=== PATIENT | female | born 1975 | race Caucasian/White ===

== ENCOUNTER 2017-01-29 00:22 | Emergency (ER) | payer OTHER ==
[~2017-01-29] VITALS: Ht 167.6 cm; Wt 91.9 kg
[~2017-01-29 00:22] MED LIST: HYDRODIURIL,ORE25 MG PO
[2017-01-29] MEDS ORDERED: PEN-VEE K,VEET500 MG PO (03:02)
[2017-01-29] MEDS ORDERED: PERCOCET 5/31 TABLET PO (03:02)
[2017-01-29 03:19] VITALS: BP 176/111
== END 2017-01-29 03:19 | disposition home or self-care (01) ==
LOC: EME 00:22
DX: S02.5XXA Fracture of tooth (traumatic), initial encounter for closed fracture (principal); I10 Essential (primary) hypertension
CPT/HCPCS: 99281; 99283

== ENCOUNTER 2017-06-13 22:13 | Inpatient (IN) | payer OTHER ==
[~2017-06-13] VITALS: Ht 167.6 cm; Wt 92.6 kg
[~2017-06-13 22:13] MED LIST changes: +PEN-VEE K,VEET500 MG PO; +PERCOCET 5/31 TABLET PO
[2017-06-13 23:11] LABS: HEMATOCRIT 39.4 % (36.0-46.0); HEMOGLOBIN 14.1 G/DL (11.9-15.5); MCH 31.9 PG (29.0-34.0); MCHC 35.8 G/DL (30.0-36.0); MCV 89.1 FL (83-99); PLATELET COUNT 311 K/uL (156-360); RBC DIS.WIDTH-SD 39.1 % (39-53); RED BLOOD COUNT 4.42 M/uL (3.80-5.20); WHITE BLOOD COUNT 9.5 K/uL (4.1-10.2)
[2017-06-13 23:38] LABS: CHLORIDE 105 MEQ/L (99-109); CREATININE 0.7 MG/DL (0.6-1.3); GFR ESTIMATE (CALCULATED) > 59 mL/min/; GLUCOSE 135 mg/dL (70-99); POTASSIUM 3.6 MEQ/L (3.7-5.4); SODIUM 138 MEQ/L (136-147); UREA NITROGEN (BUN) 10 mg/dL (9-23)
[2017-06-13 23:42] LABS: TROP-I INTERPRETATION NEGATIVE; TROPONIN-I < 0.01 ng/mL (0.0-0.30)
[2017-06-14 03:51] LABS: D-DIMER ELISA < 150.00 ng/mLDDU (<230)
[2017-06-14 04:02] LABS: TROP-I INTERPRETATION INDETERMINATE; TROPONIN-I 0.41 ng/mL (0.0-0.30)
[2017-06-14 04:30] LABS: INTER. NORMALIZED RATIO 1.1
[2017-06-14 04:33] LABS: PTT 32.1 SEC (25-37)
[2017-06-14 05:02] LABS: QUANTITATIVE HCG < 4.0 MIU/ML
[2017-06-14] MEDS ORDERED: LISINOPRIL10 MG PO (07:21)
[2017-06-14 08:03] VITALS: BP 143/73
[2017-06-14 11:13] LABS: BENZODIAZEPINES, URINE SCREEN Negative (200 ng/mL)
[2017-06-14 11:20] VITALS: BP 150/80
[2017-06-14 11:57] LABS: TROP-I INTERPRETATION POSITIVE; TROPONIN-I 3.36 ng/mL (0.0-0.30)
[2017-06-14 12:10] LABS: HDL CHOLESTEROL 58 MG/DL (Desirable>=50); LDL CHOLESTEROL 118 mg/dL (Desirable<100); NON-HDL CHOLESTEROL 138 mg/dL (Desirable<160); TOTAL CHOLESTEROL 196 mg/dL (Desirable<200); TRIGLYCERIDES 98 MG/DL (Normal: <150)
[2017-06-14 17:26] VITALS: BP 178/100
[2017-06-14 18:39] VITALS: BP 152/98
[2017-06-14 18:52] LABS: TROPONIN-I 7.85 ng/mL (0.0-0.30)
[2017-06-14 18:53] LABS: TROP-I INTERPRETATION POSITIVE
[2017-06-14 19:57] VITALS: BP 140/89
[2017-06-14 20:47] VITALS: BP 144/96
[2017-06-15] VITALS (7 sets, daily range): BP systolic 130–186; BP diastolic 85–98
[2017-06-15 05:17] LABS: BASOPHIL (%) 0.4 % (0-1); BASOPHIL COUNT 0.1 K/uL (0-0.1); EOSINOPHIL (%) 1.3 % (0-5); EOSINOPHIL COUNT 0.2 K/uL (0-0.3); HEMATOCRIT 42.9 % (36.0-46.0); HEMOGLOBIN 14.5 G/DL (11.9-15.5); IMMATURE GRANULOCYTE (%) 0.5 % (0.0-0.7); LYMPHOCYTE (%) 21.3 % (15-42); LYMPHOCYTE COUNT 2.8 K/uL (1.0-2.8); MCH 30.7 PG (29.0-34.0); MCHC 33.8 G/DL (30.0-36.0); MCV 90.9 FL (83-99); MONOCYTE (%) 8.1 % (3-12); MONOCYTE COUNT 1.1 K/uL (0-0.8); NEUTROPHIL (%) 68.4 % (45-76); NEUTROPHIL COUNT 8.9 K/uL (1.8-6.4); PLATELET COUNT 382 K/uL (156-360); RBC DIS.WIDTH-CV 12.1 % (11.8-14.6); RBC DIS.WIDTH-SD 40.2 % (39-53); RED BLOOD COUNT 4.72 M/uL (3.80-5.20); WHITE BLOOD COUNT 13.1 K/uL (4.1-10.2)
[2017-06-15 05:49] LABS: ALBUMIN 4.1 G/DL (3.2-4.8); ALKALINE PHOSPHATASE 58 IU/L (3-129); ALT (GPT) 22 IU/L (3-49); AST (GOT) 74 IU/L (2-34); CHLORIDE 103 MEQ/L (99-109); CREATININE 0.8 MG/DL (0.6-1.3); GFR ESTIMATE (CALCULATED) > 59 mL/min/; GLUCOSE 109 mg/dL (70-99); POTASSIUM 3.5 MEQ/L (3.7-5.4); SODIUM 138 MEQ/L (136-147); TOTAL BILIRUBIN 0.9 MG/DL (0.0-1.0); TOTAL PROTEIN 7.6 G/DL (6.4-8.3); UREA NITROGEN (BUN) 8 mg/dL (9-23)
[2017-06-16 05:38] VITALS: BP 128/75
[2017-06-16 07:06] VITALS: BP 122/74
[2017-06-16] MEDS ORDERED: LOPRESSOR50 MG PO (10:47)
[2017-06-16] MEDS ORDERED: PRAVASTATIN SOD80 MG PO (10:47)
[2017-06-16] MEDS ORDERED: NITROSTAT0.4 MG SL (10:47)
[2017-06-16] MEDS ORDERED: ASPIRIN81 M2 PO (10:48)
[2017-06-16] MEDS ORDERED: LISINOPRIL5 MG PO (10:48)
== END 2017-06-16 13:23 | disposition home or self-care (01) | DRG 282 ==
LOC: EME 22:13 → 4EAST 06-14 04:37 → EDOF 06-14 04:37 → ENRESERV 06-14 04:44 → 4EAST 06-14 07:35
PROVIDERS: Emergency Medicine; Hospitalist; Physician Assistant Medical
DX: I25.42 Coronary artery dissection (principal); I21.4 Non-ST elevation (NSTEMI) myocardial infarction; E66.9 Obesity, unspecified; I10 Essential (primary) hypertension; E87.6 Hypokalemia; E78.5 Hyperlipidemia, unspecified; I77.1 Stricture of artery; I34.0 Nonrheumatic mitral (valve) insufficiency; F41.9 Anxiety disorder, unspecified; Z68.32 Body mass index [BMI] 32.0-32.9, adult; Z79.82 Long term (current) use of aspirin; Z85.828 Personal history of other malignant neoplasm of skin; Z90.49 Acquired absence of other specified parts of digestive tract; Z98.51 Tubal ligation status; Z82.5 Family history of asthma and other chronic lower respiratory diseases
CPT/HCPCS: 70496; 70498; 71046; 80048; 80053; 80061; 80306 90; 84484; 84702; 85025; 85027; 85379; 85610; 85730; 93005; 93306; 99281; 99285; C1769; C1887; J0360; J1644; J2250; J3010; J7040